=== PATIENT | male | born 1955 | race Caucasian/White ===

== ENCOUNTER 2016-04-23 07:35 | Outpatient (CLI) | payer OTHER ==
[2016-04-23 09:24] LABS: Blood Urea Nitrogen 20 mg/dL (9-20)
--- NOTE | 2016-04-23 12:05 | Cat Scan Report ---
CT CHEST WITH CONTRAST INDICATION: Abnormal chest x-ray. COMPARISON: 02/03/2008 chest x-ray. FINDINGS: Chest CT performed following intravenous administration of 100 cc of Omnipaque 300. Unremarkable heart and great vessels. Some motion artifact. No pleural effusions. Pericardial fluid slightly generous at the base of the heart. No size significant adenopathy. Few atherosclerotic calcifications. Patent airway. Normal thyroid. Slight biapical scarring. Otherwise unremarkable lungs. Nonspecific distal esophageal wall thickening, not excluded for gastroesophageal reflux and/or hiatal hernia, amongst others. Imaged upper abdomen reveals no significant abnormality other than colonic stool/possible constipation. Mild degenerative changes along few imaged spinal levels. CONCLUSION: No acute chest CT abnormality with few incidental findings, as above. Direct comparison with stated abnormal chest x-ray or correlation with its report, if available, would be further helpful to better evaluate for the nature of suspected abnormality. Thank you for the opportunity to participate in this patient's care.
== END 2016-04-23 07:36 | disposition home or self-care (01) ==
LOC: CT 07:35
PROVIDERS: ATTEND Internal Medicine
DX: R93.8 Abnormal findings on diagnostic imaging of other specified body structures (principal)
CPT/HCPCS: 36415; 71260; 82565; 84520; Q9967